=== PATIENT | female | born 1945 | race Caucasian/White ===

== ENCOUNTER → 2018-01-01 | Outpatient (CLI) | payer OTHER, BC ==
--- NOTE | ~2018-01-01 | 2DMMODE ---
[facility] [place] [address] 2 D/M-MODE ECHOCARDIOGRAM Name: JONO JAVIER Room #: REG [facility]#: [id number] Admission: 01/01/18 Attend Phys: Damien Jaquez Discharge: Date of : 45 Date of Service: 01/01/18 1028 Report #: [id number] THIS REPORT FOR: //name// APPROVED REPORT Study performed: 01/01/2018 09:11:57 EXAM: Comprehensive 2D, Doppler, and color-flow Echocardiogram Patient Location: Out-Patient Status: routine BSA: 1.96 HR: 57 bpm BP: 111/78 mmHg Rhythm: NSR Other Information Study Quality: Adequate Indications Atrial flutter. Hx: [place], stent Echo Enhancing Agent Indication: Endocardial border delineation Agent(s) / Amount(s) Used: Agitated Saline 5 cc 2D Dimensions RVDd: 33.93 mm LVEF(%): 59.02 (>50%) IVSd: 12.00 (7-11mm) LVOT Diam: 21.38 (18-24mm) LVDd: 44.54 mm PWd: 12.00 (7-11mm) Ascending Ao: 32.75 (22-36mm) LVDs: 30.68 (25-40mm) Aortic Root: 33.04 mm Madsen's LVEF: 59.02 % Volumes Left Atrial Volume (Systole) Single Plane 4CH: 95.28 mL Single Plane 2CH: 88.80 mL LA ESV Index: 49.00 mL/m2 Aortic Valve AoV Peak Hany.: 1.55 m/s AO Peak Gr.: 9.63 mmHg LVOT Max P.83 mmHg LVOT Max V: 1.10 m/s GUILLERMO Vmax: 2.54 cm2 [facility] [place] [address] 2 D/M-MODE ECHOCARDIOGRAM Name: JONO JAVIRE Room #: [facility].#: [id number] Admission: 01/01/18 Attend Phys: Damien Jaquez Discharge: Date of : 45 Date of Service: 01/01/18 1028 Report #: [id number] Mitral Valve E/A Ratio: 1.6 MV Decel. Time: 187.23 ms MV E Max Hany.: 0.90 m/s MV A Hany.: 0.55 m/s MV PHT: 54.30 ms IVRT: 83.04 ms Pulmonary Valve PV Peak Hany.: 0.95 m/s PV Peak Gr.: 3.59 mmHg Pulmonary Vein P Vein S: 0.63 m/s P Vein A: 0.40 m/s P Vein D: 0.43 m/s P Vein A Dur.: 147.6 msec P Vein S/D Ratio: 1.47 Tricuspid Valve TR Peak Hany.: 2.68 m/s RAP Estimate: 5.00 mmHg TR Peak Gr.: 28.63 mmHg PA Pressure: 34.00 mmHg Left Ventricle The left ventricle is normal size. There is normal LV segmental wall motion. Left ventricular hypertrophy with marked apical hypertrophy. 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 LV apical intracavitary velocity of 3.8m/sec (55mm Hg intracavitary gradient) Left ventricular systolic function is normal. LVEF is 65%. Right Ventricle The right ventricle is normal size. The right ventricular systolic function is normal. Atria The left atrium size is normal. Lipomatous hypertrophy Right atrium is moderately dilated. Aortic Valve The aortic valve is mildly sclerotic. Trace aortic regurgitation. There is no aortic valvular stenosis. Mitral Valve Moderate mitral annular calcification. Moderate mitral regurgitation. No evidence of mitral valve stenosis. Tricuspid Valve [facility] [address] [place] [address] 2 D/M-MODE ECHOCARDIOGRAM Name: JONO JAVIER Room #: REG [facility]#: [id number] Admission: 01/01/18 Attend Phys: aDmien Jaquez Discharge: Date of : 45 Date of Service: 01/01/18 1028 Report #: [id number] The tricuspid valve is normal in structure. Mild tricuspid regurgitation. Estimated PAP of 35mmHg. Pulmonic Valve Pulmonic valve is not well visualized. Trace pulmonic regurgitation. Great Vessels The aortic root is normal in size. The ascending aorta is normal in size. IVC is normal in size and collapses >50% with inspiration. Pericardium There is no pericardial effusion. <Conclusion> Left ventricular hypertrophy with marked apical hypertrophy. 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 LV apical intracavitary velocity of 3.8m/sec (55mm Hg intracavitary gradient) There is normal LV segmental wall motion. LVEF 65%. Lipomatous hypertrophy of atrial septum The aortic valve is mildly sclerotic. Trace aortic regurgitation, no aortic valvular stenosis. Moderate mitral annular calcification. Moderate mitral regurgitation. Mild tricuspid regurgitation. Estimated pulmonary artery pressure of 35mmHg. There is no pericardial effusion. <ELECTRONICALLY SIGNED> By: Jason Flores MD, FACC 01/01/18 1028 1028 1028 Jason Flores MD, FACC /INF
== END ==
LOC: CV 06:59
DX: I08.1 Rheumatic disorders of both mitral and tricuspid valves (principal); I48.92 Unspecified atrial flutter

== ENCOUNTER → 2018-03-11 | Outpatient (CLI) | payer OTHER, BC ==
--- NOTE | ~2018-03-11 | EXE ---
[facility] [address] [address] STRESS ECHOCARDIOGRAM Name: JONO JAVIER Room #: REG [facility]#: [id number] Admission: 03/11/18 Attend Phys: Damien Jaquez Discharge: Date of : 45 Date of Service: 03/11/18 1433 Report #: [id number] THIS REPORT FOR: //name// APPROVED REPORT Study performed: 03/11/2018 13:21:49 Exam: Stress Echocardiogram Indication: Hypertrophic cardiomyopathy, monitor BP with exercise Patient Location: Out-Patient Stress Nurse: Geovanna Mcnair RN, Ivania Triplett RN Status: routine Ht: 5 ft 4 in HR: 60 bpm BP: 117/72 mmHg Medical History Medical History: [place], stent, HTN, HLP Medications: Listed on worksheet Allergies: Listed on worksheet Procedure The patient underwent an Exercise Stress Test using the Modified Frakny Protocol. Blood pressure, heart rate, and EKG were monitored. An Echocardiogram was performed by environmental test technician in four stages in quad fashion. At peak stress, four selected images were obtained and placed side by side with resting images for comparison. Stress Test Details Stress Test: Exercise stress testing was performed using a modified Franky protocol. HR Resting HR: 60 bpm Max Heart Rate (APMHR): 148 bpm Max HR Achieved: 139 bpm Target HR (85% APMHR): 125 bpm % of APMHR: 93 Recovery HR: 90 bpm HR response to stress: Normal HR response to stress BP Resting BP: 117/72 mmHg Max BP: 180/80 mmHg Recovery BP: 134/78 mmHg [facility] [address] [place] [address] STRESS ECHOCARDIOGRAM Name: JONO JAVIER [id number] Admission: 03/11/18 [facility]end [facility] Dis[facility]: Date of : 45 Date of Service: 03/11/18 1433 Report #: [id number] Resting ECG: Sinus Rhythm, nonspecific ST-T abnormalities Stress ECG: Sinus Rhythm, nonspecific ST-T abnormalities ST Change: Non-ischemic Maximum ST Deviation: 0.5 mm Clinical Reason for Termination: Severe fatigue Stress Symptoms: Dyspnea, Leg Fatigue Exercise duration: 5 min sec Highest Stage Achieved: Modified stage 2 Exercise capacity: 5.30 METs Pre-Stress Echo The resting Echocardiogram showed normal left ventricular contractility with an estimated Ejection Fraction of about 65%. Left ventricular hypertrophy with marked apical hypertrophy. LV apical intravitary velocity of 4.1m/s and a peak pressure gradient of 68mmHg. Moderate MR, mild TR with an estimated PAP of 30mmHg plus the RAP. Post-Stress Echo The stress Echocardiogram showed normal left ventricular contractility with an estimated Ejection Fraction of about >70%. Normal augmentation of wall motion in all segments on post stress images. Clinical No clinical or ECG evidence for ischemia. Conclusion Clinical Response: Non-ischemic Exercise Capacity: Average Stress ECG Response: Non-ischemic Stress Echo Images: Non-ischemic The left ventricle is normal in size and wall thickness in both the rest and stress images. Other Information Study Quality: Adequate <Conclusion> [facility] [address] [place] [address] STRESS ECHOCARDIOGRAM Name: JAVIERJONO S Room #: REG [facility]#: [id number] Admission: 03/11/18 Attend Phys: Damien Jaquez Discharge: Date of : 45 Date of Service: 03/11/181432 Report #: [id number] The left ventricle is normal in size and wall thickness in both the rest and stress images. <ELECTRONICALLY SIGNED> By: Kunal Wilson MD 03/11/181432 32 32 Kunal Wilson MD /INF
== END ==
LOC: CV 13:02
DX: I48.92 Unspecified atrial flutter (principal); I10 Essential (primary) hypertension; E78.5 Hyperlipidemia, unspecified